=== PATIENT | female | born 1955 | race African-American/Black ===

== ENCOUNTER 2017-06-26 08:34 | Outpatient (CLI) | payer BC ==
--- NOTE | 2017-06-26 09:23 | RAD ---
2 VIEWS CHEST: Date: 06/26/17 COMPARISON: None. HISTORY: Preoperative radiograph. FINDINGS: Two views of the chest show normal sized cardiomediastinal silhouette. There is no evidence of consol idation, mass, or pleural effusion. The bones are unremarkable. IMPRESSION: No evidence of acute cardiopulmonary disease. POS: [id number]
== END 2017-06-26 08:35 | disposition home or self-care (01) ==
LOC: NAV RAD 08:34
PROVIDERS: ATTEND Orthopaedic Surgery Hand Surgery
DX: Z01.818 Encounter for other preprocedural examination (principal); G56.02 Carpal tunnel syndrome, left upper limb
CPT/HCPCS: 71046; 93005